=== PATIENT | female | born 1985 | race Caucasian/White ===

== ENCOUNTER 2017-03-10 09:33 | Emergency (ER) | payer MEDICAID ==
[~2017-03-10] VITALS: Ht 154.9 cm; Wt 78.0 kg
[2017-03-10] MEDS ORDERED: DIPHENHYDRAMINE 50MG/ML VIAL IV ONE (10:30)
[2017-03-10] MEDS ORDERED: ONDANSETRON HCL 4MG/2ML VIAL IV ONE (10:30)
[2017-03-10] MEDS ORDERED: SODIUM CHLORIDE 0.9% 1,000 ML IV ONE (10:45)
[2017-03-10] MEDS ORDERED: LACTATED RINGERS 1,000 ML IV STA (11:44)
[2017-03-10 13:00] VITALS: BP 103/61
== END 2017-03-10 13:13 | disposition home or self-care (01) ==
LOC: ER 09:33
DX: O21.0 Mild hyperemesis gravidarum (principal); O26.892 Other specified pregnancy related conditions, second trimester; E86.0 Dehydration; O99.512 Diseases of the respiratory system complicating pregnancy, second trimester; J45.909 Unspecified asthma, uncomplicated; O99.282 Endocrine, nutritional and metabolic diseases complicating pregnancy, second trimester; E05.90 Thyrotoxicosis, unspecified without thyrotoxic crisis or storm; Z3A.17 17 weeks gestation of pregnancy; Z88.8 Allergy status to other drugs, medicaments and biological substances
CPT/HCPCS: 81025; 96361; 96374; 96375; 99284; J1200; J2405; J7030; J7120; Z7610

== ENCOUNTER 2017-03-26 11:49 | Observation (INO) | payer MEDICAID ==
[~2017-03-26] VITALS: Ht 157.5 cm; Wt 81.6 kg
[~2017-03-26 11:49] MED LIST: FOLI-43 PO; ONDA8TAB6 PO; PNV1TABL76 PO
[2017-03-26] MEDS ORDERED: FAMOTIDINE 20MG TABLET PO NR (12:45)
[2017-03-26] MEDS ORDERED: DEXT 5%/LACTATED RINGERS 1,000 ML IV SCH (12:45)
[2017-03-26] MEDS ORDERED: ONDANSETRON HCL 4MG/2ML VIAL IM NR (12:45)
[2017-03-26 13:48] LABS: HEMATOCRIT 30.9 % (36.0-48.0); HEMOGLOBIN 10.7 g/dL (12.0-16.0); MEAN CORPUSCULAR HEMOGLOBIN 28.9 pg (28.0-32.0); MEAN CORPUSCULAR VOLUME 83.1 fL (81.0-99.0); PLATELET 237 x1000/uL (130-400); RED BLOOD CELL COUNT 3.72 mill/uL (4.2-5.4)
[2017-03-26 13:55] LABS: CHLORIDE 108 mEq/L (98-107)
[2017-03-26 14:11] LABS: CARBON DIOXIDE 25 mEq/L (21-32)
[2017-03-26] MEDS ORDERED: DEXT 5%/0.45% NACL KCL 20MEQ/L 1,000 ML IV SCH (14:30)
[2017-03-26 14:40] LABS: CLARITY URINE CLEAR (CLEAR); COLOR URINE YELLOW (YELLOW); KETONES URINE 3+ (NEGATIVE); LEUKOCYTE ESTERASE URINE NEGATIVE (NEGATIVE); NITRITE URINE NEGATIVE (NEGATIVE); OCCULT BLOOD URINE NEGATIVE (NEGATIVE); PROTEIN URINE NEGATIVE (NEGATIVE); SPECIFIC GRAVITY URINE 1.024 (1.005-1.030)
== END 2017-03-26 16:15 | disposition home or self-care (01) ==
LOC: L&D 11:49 → MERGE 11:49
PROVIDERS: ADMIT Obstetrics & Gynecology; ATTEND Obstetrics & Gynecology
DX: O21.2 Late vomiting of pregnancy (principal); Z3A.22 22 weeks gestation of pregnancy
CPT/HCPCS: 36415; 76815; 80053; 81001; 84443; 85027; 96360; 96361; 96372; 99281; G0378; J2405; J7121; 96365

== ENCOUNTER 2017-03-30 00:11 | Emergency (ER) | payer MEDICAID ==
[~2017-03-30] VITALS: Ht 154.9 cm; Wt 77.0 kg
[2017-03-30] MEDS ORDERED: SODIUM CHLORIDE 0.9% 1,000 ML IV ONE (02:47)
[2017-03-30] MEDS ORDERED: ONDANSETRON HCL 4MG/2ML VIAL IV STA (02:47)
[2017-03-30 03:10] LABS: BASOPHILS % 0.2 % (0.0-2.0); HEMATOCRIT. 31.2 % (36.0-48.0); HEMOGLOBIN. 10.7 g/dL (12.0-16.0); LYMPHOCYTES % 17.7 % (20.0-50.0); MEAN CORPUSCULAR HEMOGLOBIN 28.7 pg (28.0-32.0); MEAN CORPUSCULAR VOLUME 83.6 fL (81.0-99.0); MEAN PLATELET VOLUME 9.1 fl (7.4-10.4); MONOCYTES % 7.6 % (2.0-8.0); NEUTROPHILS % 73.5 % (40.0-76.0); PLATELET 226 x1000/uL (130-400); RED BLOOD CELL COUNT 3.74 mill/uL (4.2-5.4); RED CELL DISTRIBUTION WIDTH 13.7 % (11.6-14.6)
[2017-03-30 03:24] LABS: CARBON DIOXIDE 25 mEq/L (21-32); CHLORIDE 105 mEq/L (98-107)
[2017-03-30] MEDS ORDERED: ONDANSETRON HCL 4MG/2ML VIAL IV ONE (05:45)
[2017-03-30 05:50] VITALS: BP 99/56
[2017-03-30 05:58] LABS: CLARITY URINE CLOUDY (CLEAR); COLOR URINE DARK YELLOW (YELLOW); GLUCOSE URINE NEGATIVE (NEGATIVE); KETONES URINE 4+ (NEGATIVE); LEUKOCYTE ESTERASE URINE TRACE (NEGATIVE); NITRITE URINE NEGATIVE (NEGATIVE); OCCULT BLOOD URINE NEGATIVE (NEGATIVE); PH URINE 5.5 (4.5-8.0); PROTEIN URINE TRACE (NEGATIVE); SPECIFIC GRAVITY URINE 1.026 (1.005-1.030)
== END 2017-03-30 07:16 | disposition home or self-care (01) ==
LOC: ER 00:11
DX: K29.00 Acute gastritis without bleeding (principal); J45.909 Unspecified asthma, uncomplicated; Z98.890 Other specified postprocedural states; Z88.8 Allergy status to other drugs, medicaments and biological substances
CPT/HCPCS: 36415; 80053; 81001; 83690; 85025; 96361; 96374; 96376; 99285; J2405; J7030; Z7610

== ENCOUNTER 2017-04-14 21:06 | Observation (INO) | payer MEDICAID ==
[~2017-04-14] VITALS: Ht 154.9 cm; Wt 78.5 kg
[2017-04-14] MEDS ORDERED: ONDANSETRON HCL 4MG/2ML VIAL IV SCH (23:30)
[2017-04-14] MEDS ORDERED: LACTATED RINGERS 1,000 ML IV SCH (23:30)
[2017-04-14] MEDS ORDERED: PNV1TABL76 MT (23:42)
== END 2017-04-15 02:15 | disposition home or self-care (01) ==
LOC: ER 22:21 → L&D 22:28
PROVIDERS: ADMIT Obstetrics & Gynecology; ATTEND Obstetrics & Gynecology
DX: O21.2 Late vomiting of pregnancy (principal); Z3A.24 24 weeks gestation of pregnancy
CPT/HCPCS: 96361; 96374; G0378; J2405; J7120; 96360

== ENCOUNTER 2019-04-22 17:34 | Emergency (ER) | payer MEDICAID ==
[~2019-04-22] VITALS: Ht 165.1 cm; Wt 72.0 kg
[~2019-04-22 17:34] MED LIST changes: +PNV1TABL76 MT
[2019-04-22] MEDS ORDERED: SODIUM CHLORIDE 0.9% 1,000 ML IV ONE (23:51)
[2019-04-22] MEDS ORDERED: ONDANSETRON HCL 4MG/2ML INJ IV STA (23:51)
[2019-04-23 00:11] LABS: BASOPHILS % 0.6 % (0.0-2.0); EOSINOPHILS % 0.3 % (0.0-5.0); HEMATOCRIT. 40.4 % (36.0-48.0); HEMOGLOBIN. 13.4 g/dL (12.0-16.0); LYMPHOCYTES % 11.4 % (20.0-50.0); MEAN CORPUSCULAR HEMOGLOBIN 27.7 pg (28.0-32.0); MEAN CORPUSCULAR VOLUME 83.2 fL (81.0-99.0); MEAN PLATELET VOLUME 10.1 fl (7.4-10.4); MONOCYTES % 4.2 % (2.0-8.0); NEUTROPHILS % 83.5 % (40.0-76.0); PLATELET 231 x1000/uL (130-400); RED BLOOD CELL COUNT 4.86 mill/uL (4.2-5.4); RED CELL DISTRIBUTION WIDTH 15.5 % (11.6-14.6)
[2019-04-23 00:16] LABS: CHLORIDE 107 mEq/L (98-107)
[2019-04-23 01:20] VITALS: BP 126/64
[2019-04-23 01:34] LABS: CLARITY URINE CLEAR (CLEAR); COLOR URINE DARK YELLOW (YELLOW); KETONES URINE 3+ (NEGATIVE); LEUKOCYTE ESTERASE URINE NEGATIVE (NEGATIVE); NITRITE URINE NEGATIVE (NEGATIVE); OCCULT BLOOD URINE NEGATIVE (NEGATIVE); PH URINE 5.5 (4.5-8.0); PROTEIN URINE 1+ (NEGATIVE); SPECIFIC GRAVITY URINE 1.035 (1.005-1.030)
== END 2019-04-23 14:00 | disposition home or self-care (01) ==
LOC: ER 17:34
DX: O21.0 Mild hyperemesis gravidarum (principal); O26.891 Other specified pregnancy related conditions, first trimester; R10.30 Lower abdominal pain, unspecified; J45.909 Unspecified asthma, uncomplicated; Z98.890 Other specified postprocedural states; Z3A.08 8 weeks gestation of pregnancy
CPT/HCPCS: 36415; 76801; 80053; 81025; 83690; 84702; 85025; 96374; 99284; J2405; J7030

== ENCOUNTER 2021-01-28 15:48 | Emergency (ER) | payer MEDICAID ==
[~2021-01-28] VITALS: Ht 157.5 cm; Wt 82.0 kg
[2021-01-28] MEDS ORDERED: ONDANSETRON 4MG ODT PO ONE (18:15)
[2021-01-28] MEDS ORDERED: FAMOTIDINE 20MG TABLET PO ONE (18:15)
[2021-01-28 20:05] VITALS: BP 110/74
[2021-01-28] MEDS ORDERED: ONDA4TAB11 PO (20:07)
[2021-01-28] MEDS ORDERED: FAMO-135 PO (20:07)
== END 2021-01-28 20:20 | disposition home or self-care (01) ==
LOC: ER 15:48
DX: K29.70 Gastritis, unspecified, without bleeding (principal); J45.909 Unspecified asthma, uncomplicated; Z88.8 Allergy status to other drugs, medicaments and biological substances; Z98.890 Other specified postprocedural states
CPT/HCPCS: 93005; 99283; Q0162